=== PATIENT | female | born 1950 | race Caucasian/White ===

== ENCOUNTER 2023-07-15 13:55 | Emergency (ER) | payer OTHER, SELFPAY ==
[2023-07-15 13:57] VITALS: BP 175/103
--- NOTE | 2023-07-15 14:50 | ED.GENMED ---
History of Present Illness
General
Chief Complaint: Musculo-Skeletal Complaint
Source: patient
Exam Limitations: none
Time Seen by Provider: 07/15/23 14:25
Nursing documentation reviewed up to this point in time: agreed with
Travel History
Have you had any contact with someone who has COVID-19?: No
Do you have any symptoms of coronavirus? Fever > 100 degrees, chills, cough, shortness of breath, sore throat, loss of taste or smell, muscle aches, or headache?: No
History of Present Illness
History of Present Illness:
72-year-old female presents to the ER for evaluation. Patient reports for the past several weeks she has noticed pain behind her left posterior knee without injury. She has been intermittently taking Tylenol ibuprofen etc. but today while bowling
she felt an intense pain behind her left knee which then prompted her to come to the ER today for evaluation. She denies any redness fever chills. she denies any lower extremity swelling, calf pain, shortness of breath.
No prior history of DVT.
Review of Systems
Review of Systems
Allergies reviewed?: Yes
All Other Systems: ROS reviewed and negative except as documented in HPI and ROS
Constitutional: Reports no symptoms; Denies fever, fatigue or chills
EENT: Reports no symptoms
Respiratory: Reports no symptoms
Cardiac: Reports no symptoms
ABD/GI: Reports no symptoms
Musculoskeletal: Reports other ( pain posterior to left knee )
Skin: Reports no symptoms
Neurological: Reports no symptoms
Psychiatric: Reports no symptoms
Phy Exam
General Physical Exam
General Presentation: no apparent distress
General age: appears stated age
General Skin: warm and dry
General Habitus: normal
General Mental: alert
General Hydration: appears well hydrated
Neurological Exam
Neurological Exam: alert and oriented x3
Musculoskeletal Exam
Musculoskeletal Exam: other (lle with strong pulses + fullness/mild tenderness to posterior left knee able to flex/extend knee, no erythema to knee strong distal pulses, no calf swelling/tenderness )
Skin Exam
Skin Exam: normal color and warm/dry
Psychiatric Exam
Psychiatric Exam: normal mood/affect
Course
Orders/Labs/Results
Orders:
Orders
07/15/23 14:48
Vital Signs- Treatment ONCE
Frequency: Once
Knee, Left 4 or More Views [CR Knee - Left 4 Or More View*] Urgent
Comment:
Reason For Exam: pain to posterior knee
07/15/23 14:49
Venous Doppler Lwr Ext Left [US Periph Venous LOWER Ext LT] Urgent
Comment:
Reason For Exam: pain to posterior knee
Vital Signs
Initial and Last Documented VS:
Initial Vital Signs
Temp Pulse Resp BP Pulse Ox
98.3 F 113 18 175/103 96
07/15/23 13:57 07/15/23 13:57 07/15/23 13:57 07/15/23 13:57 07/15/23 13:57
Last Documented Vital Signs
Temp Pulse Resp BP Pulse Ox
98.3 F 89 16 157/96 97
07/15/23 16:09 07/15/23 16:09 07/15/23 16:09 07/15/23 16:09 07/15/23 16:09
MDM/Problems Addressed
Differential Diagnosis Includes:
Not limited to ligament sprain strain, popliteal cyst, less likely DVT
MDM/Problems Addressed:
Patient has had knee pain for the past several weeks but today had discomfort when bowling and had difficulty bearing weight. She denies any actual injury. She complains of pain to the posterior knee. She denies any recent illness fever chills.
On exam there is no obvious redness to the knee she denies any fevers and is afebrile here. She has good range of motion, no laxity mild tenderness to posterior knee region. Patient had unremarkable x-rays and ultrasounds. Will need Ortho
follow-up.
*Radiology
Radiology exam reviewed: radiology read reviewed
*Pulse Oximetry
Patient hypoxic: no
*Critical Care Note
Total Time (30-74mins, 75-104mins- exclusive of procedures): Not Applicable
ED Attending Note
-
Portions of this chart may have been created with voice recognition software.� Occasional wrong word or��sound alike� substitutions may have occurred due to the inherent limitations of voice recognition software.
Discharge Plan
Departure
Patient Disposition: Home (Routine Discharge)
Date of Disposition: 07/15/23
Time of Disposition: 16:04
Patient with high blood pressure during this ER visit?: Yes
Covid-19: Not Applicable
Discharge Problem:
knee pain
Instructions: Knee Immobilizer (DC), Knee Pain (DC)
Prescriptions:
No Action
prednisone 50 MG tablet
50 mg PO DAILY Qty: 5 0RF
Referrals:
Ashia Robertson MD [Family Provider] -
Tony Barba MD [Active] -
Activity Restrictions/Additional Instructions:
As discussed wear immobilizer for support. You may use your walker. Do not sleep with immobilizer removing keep elevated. Keep elevated as much as possible. You may take ibuprofen 400 mg every 8 hours with food until seen and evaluated by
orthopedics. Please call orthopedics tomorrow to make an appointment as soon as possible.
Return if any worsening of symptoms, if increased pain fever chills redness or any further concerns.
Interventions
Interventions:
*Risk Screen - Suicide Last Done: 07/15/23 13:57
*General Assessment Last Done: 07/15/23 13:57
*Neglect/Abuse Screening Last Done: 07/15/23 13:57
ED- Fall Risk Assessment Last Done: 07/15/23 15:01
*ED COVID-19 Vaccine History Last Done: 07/15/23 13:57
*Nursing Disposition Last Done: 07/15/23 16:27
ED-Musculoskeletal Assessment Last Done: 07/15/23 15:00
Discharge Date and Time
Discharge Date/Time: 07/15/23 16:27
[2023-07-15 14:54] VITALS: BP 161/88
[2023-07-15 16:09] VITALS: BP 157/96
== END 2023-07-15 16:27 | disposition home or self-care (01) ==
LOC: EMR 13:55
PROVIDERS: EMERGENCY PHYSICIAN Emergency Medicine; FAMILY PHYSICIAN Internal Medicine
DX: M25.562 Pain in left knee (principal)
CPT/HCPCS: 99284; 29505; 73564; 93971

== ENCOUNTER → 2023-08-16 06:33 | Outpatient (REF) | payer OTHER, SELFPAY | LOC: MRI 06:33 | PROVIDERS: ATTENDING PHYSICIAN Orthopaedic Surgery; FAMILY PHYSICIAN Internal Medicine | DX: M25.562 Pain in left knee (principal) | CPT/HCPCS: 73721 ==

== ENCOUNTER 2024-11-17 03:04 | Emergency (ER) | payer OTHER, SELFPAY ==
[2024-11-17 03:05] VITALS: BP 172/102
[2024-11-17 03:22] VITALS: BMI 29.9
[2024-11-17 03:26] VITALS: BP 146/83
--- NOTE | 2024-11-17 03:43 | ED.GENMED ---
History of Present Illness
General
Chief Complaint: Abdominal Pain
Source: patient
Time Seen by Provider: 11/17/24 03:26
History of Present Illness
History of Present Illness:
74-year-old female presents to the emergency room complaining of some churning and uneasiness in her abdomen. Also a thumping in her neck. Patient concerned that she might be acquiring a disease from the mice in her house after learning about the
of Willy Lamas and his .
Phy Exam
Physical Exam
Physical Exam:
General: Awake, Alert, Oriented X3. No acute distress.
Vitals: unremarkable
Head: Atraumatic
Eyes: Pupils equal, EOMI
Throat: Airway intact, no exudates
Neck: Trachea midline
Lungs: Clear and equal b/l
Heart: Regular rate, no murmurs
Abd: Soft, Nontender, No pulsatile mass
Neuro: Nonfocal
Skin: Warm, dry, no rash
Extremities: pulses equal b/l, no edema
Course
Orders/Labs/Results
Orders:
Orders
11/17/24 03:42
Mag Hydrox/Al Hydrox/Simeth [Maalox] 30 ml Phenobarb/Hyoscy/Atropine/Scop [] 10 ml PO NOW
11/17/24 03:46
Complete Blood Count/With Diff Urgent
Comprehensive Metabolic Panel Urgent
11/17/24 03:48
Mag Hydrox/Al Hydrox/Simeth [Maalox] 30 ml .ROUTE .STK-MED ONE
Phenobarb/Hyoscy/Atropine/Scop [] 10 ml .ROUTE .STK-MED ONE
Abnormal Lab Results
11/17/24
03:46
RBC 4.19 L 10^6/uL
(4.20-5.40)
Hct 36.8 L %
(37.0-47.0)
MCHC 32.6 L g/dL
(33.0-37.0)
Chloride 109 H mmol/L
(98-107)
Glucose 112 H mg/dl
(70-99)
11/17/24 03:46
11/17/24 03:46
Vital Signs
Initial and Last Documented VS:
Initial Vital Signs
Temp Pulse Resp BP Pulse Ox
98 F 84 20 172/102 100
11/17/24 03:05 11/17/24 03:05 11/17/24 03:05 11/17/24 03:05 11/17/24 03:05
Last Documented Vital Signs
Temp Pulse Resp BP Pulse Ox
98 F 62 22 145/75 96
11/17/24 03:05 11/17/24 05:02 11/17/24 05:02 11/17/24 05:02 11/17/24 05:02
MDM/Problems Addressed
Differential Diagnosis Includes:
PVCs, PACs, gastritis
MDM/Problems Addressed:
Patient has benign exam. Labs unremarkable. No evidence for an unstable process
*Pulse Oximetry
Patient hypoxic: no
*Critical Care Note
Total Time (30-74mins, 75-104mins- exclusive of procedures): Not Applicable
ED Attending Note
-
Portions of this chart may have been created with voice recognition software.� Occasional wrong word or��sound alike� substitutions may have occurred due to the inherent limitations of voice recognition software.
Discharge Plan
Departure
Patient Disposition: Home (Routine Discharge)
Date of Disposition: 11/17/24
Time of Disposition: 04:33
Patient with high blood pressure during this ER visit?: No
Condition: Good
Discharge Problem:
Nausea
Instructions: Nausea and Vomiting, Adult (DC)
Prescriptions:
No Action
prednisone 50 MG tablet
50 mg PO DAILY Qty: 5 0RF
Referrals:
Ashia Robertson MD [Family Provider, Internal Medicine]
Interventions
Interventions:
*Risk Screen - Suicide Last Done: 11/17/24 03:05
*General Assessment Last Done: 11/17/24 03:41
*Neglect/Abuse Screening Last Done: 11/17/24 03:05
*ED- Fall Risk Assessment Last Done: 11/17/24 03:41
*ED COVID-19 Vaccine History Last Done: 11/17/24 03:30
*Nursing Disposition Last Done: 11/17/24 05:02
[facility]-[id number] Assessment Last Done: 11/17/24 03:23
Discharge Date and Time
Discharge Date/Time: 11/17/24 05:04
Print Language: UPPER SORBIAN
[2024-11-17] MEDS: MAALOX 40 PO (03:50)
[2024-11-17 03:55] LABS: % Basophils 0.9 % (0-2); % Eosinophils 4.1 % (0-6); % Immature Granulocytes 0.3 % (0-0.5); % Lymphocytes 36.7 % (20.5-51.1); % Monocytes 9.2 % (1.7-9.3); % Neutrophils 48.8 % (42.2-75.2); Absolute Basophils 0.1 10^3/uL (0-0.2); Absolute Eosinophils 0.3 10^3/uL (0-0.7); Absolute Lymphocytes 2.4 10^3/uL (1.2-3.4); Absolute Monocytes 0.6 10^3/uL (0.1-0.6); Absolute Neutrophils 3.2 10^3/uL (1.4-6.5); Hematocrit 36.8 % (37.0-47.0); Mean Corp Hgb Conc. 32.6 g/dL (33.0-37.0); Mean Corpuscular Hgb 28.6 pg (27.0-31.0); Mean Corpuscular Volume 87.8 fL (81.0-99.0); Mean Platelet Volume 9.5 fL (7.4-10.4); Nucleated Red Blood Cells % 0 %; Platelet Count 320 10^3/uL (130-400); Red Blood Cell Count 4.19 10^6/uL (4.20-5.40); Red Cell Dist. Width 13.2 % (11.5-14.5); White Blood Cell Count 6.6 10^3/uL (4.8-10.8)
[2024-11-17 04:00] VITALS: BP 158/83
[2024-11-17 04:23] LABS: ALT (SGPT) 14 U/L (0-35); AST (SGOT) 28 U/L (14-36); Albumin 4.4 g/dl (3.5-5.0); Alkaline Phosphatase 70 U/L (38-126); Blood Urea Nitrogen 9 mg/dl (7-17); Calcium 9.4 mg/dl (8.4-10.2); Carbon Dioxide 24 mmol/L (22-30); Chloride 109 mmol/L (98-107); Estimated Creatinine Clearance 71 ml/min; Glucose 112 mg/dl (70-99); Potassium 3.9 mmol/L (3.5-5.1); Sodium 141 mmol/L (135-145); Total Bilirubin 0.7 mg/dl (0.2-1.3); Total Protein 6.8 g/dl (6.3-8.2); eGFR > 60.00
[2024-11-17 04:44] VITALS: BP 145/75
[2024-11-17 05:02] VITALS: BP 145/75
== END 2024-11-17 05:04 | disposition home or self-care (01) ==
LOC: EMR 03:04
PROVIDERS: EMERGENCY PHYSICIAN Emergency Medicine; FAMILY PHYSICIAN Internal Medicine
DX: R11.0 Nausea (principal)
CPT/HCPCS: 99283; 80053; 85025